=== PATIENT | male | born 1975 | race Hispanic/Latino ===

== ENCOUNTER → 2024-06-13 | Day surgery (SDC) | payer SELFPAY ==
[2024-06-08 09:27] LABS: BASOPHILS # (AUTO) 0.1 (0.0-0.1); BASOPHILS % 0.7 % (0.0-1.0); EOSINOPHILS # (AUTO) 0.2 (0.0-0.4); EOSINOPHILS % 2.8 % (0.0-6.0); HEMATOCRIT 52.1 % (38.2-49.6); HEMOGLOBIN 16.4 g/dL (14.0-18.0); LYMPHOCYTES # (AUTO) 2.7 (1.0-3.2); LYMPHOCYTES % 31.7 % (18.0-39.1); MEAN CORPUSCULAR HEMOGLOBIN 28.9 pg (28-32); MEAN CORPUSCULAR HGB CONC 31.5 g/dL (31-35); MEAN CORPUSCULAR VOLUME 91.9 fL (81-99); MONOCYTES # (AUTO) 0.8 (0.2-0.8); MONOCYTES % 9.4 % (4.4-11.3); NEUTROPHILS # (AUTO) 4.6 (2.1-6.9); NEUTROPHILS % 55.2 % (38.7-80.0); PLATELET COUNT 302 x10e3/uL (140-360); RED BLOOD COUNT 5.67 x10e6/uL (4.3-5.7); RED CELL DISTRIBUTION WIDTH 14.4 % (11.7-14.4); WHITE BLOOD COUNT 8.36 x10e3/uL (4.8-10.8)
[2024-06-08 10:06] LABS: ALBUMIN 4.2 g/dL (3.5-5.0); ALBUMIN/GLOBULIN RATIO 1.4 (0.8-2.0); ANION GAP 15.2 mmol/L (8-16); BILIRUBIN,TOTAL 0.5 mg/dL (0.2-1.2); CALCIUM 9.8 mg/dL (8.4-10.2); CREATININE, SERUM 0.96 mg/dL (0.72-1.25); POTASSIUM 5.2 mmol/L (3.5-5.1); TOTAL PROTEIN 7.3 g/dL (6.5-8.1)
[~2024-06-13] MED LIST: ACETAMINOPHEN 1000 MG/100 ML 100 ML IV ONE; ASPIRIN81 MG PO; BUPIVACAINE 0.5%/EPI 30 ML SDV INJ ONE; CRESTOR40 MG PO; DEXAMETHASONE SOD PHOS INJ 4 MG/ML SDV ONE; EFFIENT10 MG PO; FENTANYL CITRATE/PF 100MCG/2 ML INJ ONE; HYDROMORPHONE 2MG/ML ONE; LABETALOL HCL 20 ML ONE; LIDOCAINE HCL 2% LOCAL INJ 5 ML SDV VIAL INJ ONE; LOSARTAN POTASS25 MG PO; METOPROLOL SUCC25 MG PO; METOPROLOL TARTRATE INJ 1 MG/ML VIAL ONE; MIDAZOLAM HCL 2 MG/2 ML VIAL ONE; PROPOFOL IV EMULSION 10 MG/ML 20 ML VIAL ONE; PROTONIX20 MG PO; ROCURONIUM BROMIDE 1 ML IV ONE; SEVOFLURANE INHAL SOLN 250 ML PEN BTL ONE; SODIUM CHLORIDE 0.9% 0 ML ONE; SODIUM CHLORIDE 0.9% 100 ML ONE; SUCCINYLCHOLINE CHLORIDE 20 MG/ML 10ML VIAL ONE
[2024-06-13] MEDS: LACTATED RINGER'S 1,000 ML ONE (09:24)
[2024-06-13 12:15] VITALS: TEMP 97.8
[2024-06-13] MEDS: HYDROCODONE/APAP 7.5MG-325MG 1 EA TAB ONE (13:00)
[2024-06-13 13:15] VITALS: BP 118/67; PULSE 75; RESP 16; O2SAT 99
== END | disposition home or self-care (01) ==
LOC: OR 06:44
PROVIDERS: ATTEND Surgery
DX: K81.1 Chronic cholecystitis (principal); K76.0 Fatty (change of) liver, not elsewhere classified; I10 Essential (primary) hypertension; E78.5 Hyperlipidemia, unspecified; M54.9 Dorsalgia, unspecified; K21.9 Gastro-esophageal reflux disease without esophagitis; K44.9 Diaphragmatic hernia without obstruction or gangrene; F17.200 Nicotine dependence, unspecified, uncomplicated; Z01.810 Encounter for preprocedural cardiovascular examination; Z01.812 Encounter for preprocedural laboratory examination; Z01.818 Encounter for other preprocedural examination; Z79.82 Long term (current) use of aspirin; Z79.899 Other long term (current) drug therapy; Z95.5 Presence of coronary angioplasty implant and graft
CPT/HCPCS: 36415; 47562; 71046; 80053; 85025; 88304; 93005; C1766; J0131; J0330; J1100; J2003; J2250; J2704; J3010; J3490; J7050; J7121